=== PATIENT | male | born 2000 | race Caucasian/White ===

== ENCOUNTER 2018-05-13 09:16 | Day surgery (SDC) | payer OTHER ==
[~2018-05-13 09:16] MED LIST: CEFAZOLIN SODIUM 2 GM in DEXTROSE 5%-WATER 100 ML IV PRN
[2018-05-13] MEDS ORDERED: CEFAZOLIN 2 GM/D5W RTU 2 GM/50 ML RTUPB IV ONE (09:37)
[2018-05-13] MEDS ORDERED: BUPIVACAINE HCL 0.5 % INJ/PF 30 ML SDV ONE (10:44)
[2018-05-13] MEDS ORDERED: MIDAZOLAM 2 MG/2 ML INJ ONE (11:35)
[2018-05-13] MEDS ORDERED: HYDROMORPHONE HCL INJ/PF 2 MG/ML AMPULE ONE (11:35)
[2018-05-13] MEDS ORDERED: ONDANSETRON HCL INJ/PF 4 MG/2 ML SDV ONE (11:35)
[2018-05-13] MEDS ORDERED: FENTANYL CITRATE INJ/PF 100 MCG/2 ML AMPUL ONE ×2 (11:35→13:25)
[2018-05-13] MEDS ORDERED: ACETAMINOPHEN 1,000 MG/100 ML RTUPB IV ONE (11:36)
[2018-05-13] MEDS ORDERED: PROPOFOL INJ 200 MG/20 ML VIAL IV ONE (11:36)
[2018-05-13] MEDS ORDERED: OXYCODONE-ACETAMINOPHEN 5-325 MG TABLET PO PRN ×3 (13:15→13:16)
[2018-05-13] MEDS ORDERED: MEPERIDINE HCL/PF INJ 25 MG/1 ML DISP.SYRIN IV PRN (13:15)
[2018-05-13] MEDS ORDERED: PROMETHAZINE HCL INJ 25 MG/1 ML VIAL IV PRN ×2 (13:15)
[2018-05-13] MEDS ORDERED: DIPHENHYDRAMINE HCL 50 MG/ML VIAL IV PRN (13:15)
[2018-05-13] MEDS ORDERED: FENTANYL CITRATE INJ/PF 100 MCG/2 ML AMPUL IV PRN ×2 (13:15)
[2018-05-13] MEDS ORDERED: ONDANSETRON HCL INJ/PF 4 MG/2 ML SDV IV PRN (13:17)
[2018-05-13 15:22] VITALS: BP 109/68
--- NOTE | 2018-05-13 17:17 | OPERATIVE REPORT E ---
Operative Report NAME: OLIVE JONES JR : 2000 AGE: 17Y DATE OF SURGERY: ROOM: PREOPERATIVE DIAGNOSIS: Left thumb laceration with transection extensor pollicis longus tendon. POSTOPERATIVE DIAGNOSIS: Left thumb laceration with transection extensor pollicis longus tendon. PROCEDURE: Left thumb extensor pollicis longus tendon repair. SURGEON: LYNN LUNA M.D. ANESTHESIA: General. BLOOD LOSS: Minimal. COMPLICATIONS: None. INDICATIONS: The patient is a 17-year-old [employer] who sustained a traumatic transection of the left thumb extensor pollicis longus with a pocket knife while trying to open a box. He had full loss of extension of his thumb. DESCRIPTION OF PROCEDURE: Following induction of a general anesthetic with administration of antibiotics the patient was positioned supine on the operating room table. All bony prominences were padded. A tourniquet was placed proximally on the left arm, but not inflated. The left upper extremity was sterilely prepped with Chloraprep and draped in standard fashion. The arm was exsanguinated and the tourniquet inflated to 250 mmHg. The traumatic transection was transversed. It was extended proximally and distally in the mid lateral plane. Flaps were raised. The tendon was visualized. It was a complete transection of the extensor pollicis longus tendon in zone 2. The traumatic wound was irrigated. Extensor pollicis longus repair was performed using a 2-0 FiberLoop. A grasping suture technique was used with multiple passes, similar to a Silfverskld technique with multiple passes across tendon due to the thinness of the tendon in zone 2. This led to a strong repair that allowed passive flexion of the interphalangeal joint without gapping. The wound was then irrigated. A running epitendinous suture was performed using 6-0 Prolene. Additional irrigation was performed. The skin was then closed side to side with 3-0 nylon suture, 0.25% Marcaine was injected for postoperative analgesia. A sterile dressing and splint were applied. The patient tolerated the procedure well without complication and was brought to the recovery room in stable condition. DICTATING PHYSICIAN: LYNN LUNA M.D. [id number] PHY#: [id number] ID: [id number] JOB#: [id number] ACCT: [id number] cc:LYNN LUNA M.D. >
--- NOTE | 2018-05-13 20:24 | EKG REPORT ---
SEVERITY:- NORMAL ECG - SINUS RHYTHM ST ELEV, PROBABLE NORMAL EARLY REPOL PATTERN : Confirmed by: Kayla Tamez 13-May-2018 20:23:46
== END 2018-05-13 15:00 | disposition home or self-care (01) ==
LOC: OROUT 09:16
PROVIDERS: ATTEND Orthopaedic Surgery
DX: S66.222A Laceration of extensor muscle, fascia and tendon of left thumb at wrist and hand level, initial encounter (principal); S61.012A Laceration without foreign body of left thumb without damage to nail, initial encounter; W26.0XXA Contact with knife, initial encounter; Z88.2 Allergy status to sulfonamides
CPT/HCPCS: 93005; 93010; 26420; J2250; J3490; J1170; J2405; J2704; J0690; J0131; 1810; J3010